=== PATIENT | male | born 1940 | race Caucasian/White ===

== ENCOUNTER 2017-04-19 01:54 | Inpatient (IN) | payer MEDICARE ==
[~2017-04-19] VITALS: Ht 188 cm; Wt 87.5 kg
[2017-04-19] VITALS (11 sets, daily range): BP systolic 108–149; BP diastolic 52–72; PULSE 55–74; RESP 13–27; TEMP 96.4–98.2; O2SAT 94–98
[2017-04-19] MEDS ORDERED: ASPI81TA81 (02:44)
[2017-04-19] MEDS ORDERED: CITA20TA4 PO (02:44)
[2017-04-19] MEDS ORDERED: VITA2000 PO (02:44)
[2017-04-19] MEDS ORDERED: BENA20TA PO (02:44)
[2017-04-19] MEDS ORDERED: PRAV40TA2 PO (02:44)
[2017-04-19] MEDS ORDERED: HYDR12.56 PO (02:44)
[2017-04-19] MEDS ORDERED: CLON1TAB PO (02:44)
[2017-04-19] MEDS ORDERED: AMLO5TAB2 PO (02:44)
[2017-04-19] MEDS ORDERED: CYAN100025 SL (02:44)
--- NOTE | 2017-04-19 02:58 | PD ---
HPI Chief Complaint: Neuro Symptoms/ Deficits Time Seen by Provider: 02:05 Travel History International Travel<30 days: No Contact w/Intl Traveler<30days: No Traveled to known affect area: No History of Present Illness HPI This is a 76-year-old male who was transferred from [facility] as a trauma transfer. The patient was cutting trees on a ladder about 4 or 5:00 today when he reportedly fell off. He does not recall falling off a ladder. He does report waking up on the ground and then getting up and walking towards the house. He states he felt funny at that time. He was seen and evaluated at [facility] found to have a small intracranial hemorrhage in his right frontal area. He was also found to have right sided rib fractures and a small pneumothorax. He was transferred here and accepted by Dr. Duran from her trauma service. The patient has a history of hypertension and takes a half of an aspirin a day. He is awake and appropriate and answering questions. [facility] Social History Tobacco Use: Yes Allergies-Medications (Allergen,Severity, Reaction): Coded Allergies: Contrast Media (Verified Allergy, Severe, 04/19/17) Review of Systems Except as stated in HPI: all other systems reviewed are Neg General / Constitutional: No: Fever, Chills HENT: Positive: Headaches, No: Neck Pain (right frontal) Cardiovascular: Positive: Chest Pain or Discomfort (right lower chest wall where he has broken ribs), No: Palpitations Respiratory: No: Cough, Shortness of Breath Gastrointestinal: No: Nausea, Vomiting, Abdominal Pain Genitourinary: No: Frequency Musculoskeletal: Positive: Pain (right lower rib), No: Weakness Neurologic: Positive: Headache (right frontal), No: Weakness, Change in Mentation, Slurred Speech Physical Exam Narrative GENERAL: Well-developed well-nourished male in no acute respiratory distress SKIN: Focused skin assessment warm/dry. HEAD: Atraumatic. Normocephalic. EYES: No scleral icterus. No injection or drainage. ENT: No nasal bleeding or discharge. Mucous membranes pink and moist. NECK: Trachea midline. No JVD. Supple. CARDIOVASCULAR: Regular rate and rhythm. No murmur appreciated. RESPIRATORY: No accessory muscle use. Clear to auscultation. Breath sounds equal bilaterally. Right sided rib tenderness in his right lower rib cage. No crepitance GASTROINTESTINAL: Abdomen soft, non-tender, nondistended. Hepatic and splenic margins not palpable. MUSCULOSKELETAL: No obvious deformities. Multiple bruises and skin tear noted on his right forearm. NEUROLOGICAL: Awake and alert. No obvious cranial nerve deficits. Motor grossly within normal limits. Normal speech. Data Data Last Documented VS Vital Signs Date Time Temp Pulse Resp B/P Pulse Ox O2 Delivery O2 Flow Rate FiO2 04/19/17 02:32 60 18 99 04/19/17 02:16 97.9 140/63 [facility] Medical Decision Making Medical Screen Exam Complete: Yes Emergency Medical Condition: Yes Differential Diagnosis Intracranial hemorrhage versus pneumothorax versus rib fracture Narrative Course 76-year-old male as a trauma transfer from [facility]. The patient has a small into parenchymal hemorrhage in his right frontal lobe. Patient also has a small pneumothorax on the right and rib fractures. He was accepted for transfer by Dr. Duran. I spoke with Dr. Duran and he is requesting we met the patient to the intensive care unit. I discussed case with Dr. Hanson, intensive care physician who is graciously come down and see the patient. They'll be a repeat scan in the morning of his head. He will be able to eat and drink. He is requesting a couple coffee. Diagnosis Primary Impression: right frontal into parenchymal hemorrhage Additional Impressions: small right pneumothorax right sided rib fractures History of hypertension Admitting Information Admitting Physician Requests: Admit Rafael Martin MD Apr 19, 2017 02:57
[2017-04-19] MEDS ORDERED: SENNOSIDES 8.6 MG TAB PO PRN (03:00)
[2017-04-19] MEDS ORDERED: MISCELLANEOUS NURSING INFORMATION XX SCH (03:00)
[2017-04-19] MEDS ORDERED: MAGNESIUM HYDROXIDE SUSP 30 ML CUP PO PRN (03:00)
[2017-04-19] MEDS ORDERED: LACTULOSE SYRUP 20 GM/30 ML CUP PO PRN (03:00)
[2017-04-19] MEDS ORDERED: RESP: ALBUTEROL 2.5 MG/IPRATROPIUM 0.5 MG NEB (PRN) INH (03:00)
[2017-04-19] MEDS ORDERED: ACETAMINOPHEN 325 MG TAB PO PRN (03:00)
[2017-04-19] MEDS ORDERED: SODIUM CHLORIDE 0.9% FLUSH 10 ML FLUSH PRN (03:00)
[2017-04-19] MEDS ORDERED: ZOLPIDEM TARTRATE 5 MG TAB PO PRN (03:00)
[2017-04-19] MEDS ORDERED: CHLORHEXIDINE GLUCONATE 2 % 1 PACK (2 CLOTHS) TOP PRN (03:00)
[2017-04-19] MEDS ORDERED: ONDANSETRON HCL 4 MG/2 ML VIAL IV PRN (03:00)
[2017-04-19] MEDS ORDERED: BISACODYL 10 MG SUPP RECTAL PRN (03:00)
[2017-04-19] MEDS: SODIUM CHLOR 0.9% 1000 ML INJ 1,000 ML IV SCH ×2 (03:21→21:41)
--- NOTE | 2017-04-19 03:32 | PD.CONS ---
[facility] Service Critical Care Medicine Consult Requested By Primary Care Physician Non-Staff History of Present Illness 76-year-old very pleasant gentleman was transferred from [facility] as a trauma transfer. The patient was cutting trees on a ladder about 4 or 5:00 p.m. today when he reportedly fell off. He does not recall falling off a ladder. He does report waking up on the ground and then getting up and walking towards the house. He states he felt funny at that time. He was seen and evaluated at [facility] found to have a small intracranial hemorrhage in his right frontal area. He was also found to have right sided rib fractures and a small pneumothorax. He was transferred here and accepted by Dr. Duran from her trauma service. The patient has a history of hypertension and takes a half of an aspirin for a murmur on his heart. He is awake and appropriate and answering questions. Review of Systems Constitutional: DENIES: Diaphoretic episodes, Fatigue, Fever, Weight gain, Weight loss, Chills, Dizziness, Change in appetite, Night Sweats Endocrine: DENIES: Heat/cold intolerance, Polydipsia, Polyuria, Polyphagia Eyes: DENIES: Blurred vision, Diplopia, Eye inflammation, Eye pain, Vision loss , Photosensitivity, Double Vision Ears, nose, mouth, throat: DENIES: Tinnitus, Hearing loss, Vertigo, Nasal discharge, Oral lesions, Throat pain, Hoarseness, Ear Pain, Running Nose, Epistaxis, Sinus Pain, Toothache, Odynophagia Respiratory: DENIES: Apneas, Cough, Snoring, Wheezing, Hemoptysis, Sputum production, Shortness of breath Cardiovascular: COMPLAINS OF: Chest pain, DENIES: Palpitations, Syncope, Dyspnea on Exertion, PND, Lower Extremity Edema, Orthopnea, Claudication Gastrointestinal: DENIES: Abdominal pain, Black stools, Bloody stools, Constipation, Diarrhea, Nausea, Vomiting, Difficulty Swallowing, Anorexia Genitourinary: DENIES: Sexual dysfunction, Urinary frequency, Urinary incontinence, Urgency, Hematuria, Dysuria, Nocturia, Penile Discharge, Testicular Pain, Testicular Swelling Musculoskeletal: DENIES: Joint pain, Muscle aches, Stiffness, Joint Swelling, Back pain, Neck pain Integumentary: DENIES: Abnormal pigmentation, Nail changes, Pruritus, Rash Hematologic/lymphatic: DENIES: Bruising, Lymphadenopathy Immunologic/allergic: DENIES: Eczema, Urticaria Neurologic: COMPLAINS OF: Abnormal gait, Headache, DENIES: Localized weakness , Paresthesias, Seizures, Speech Problems, Tremor, Poor Balance Psychiatric: DENIES: Anxiety, Confusion, Mood changes, Depression, Hallucinations, Agitation, Suicidal Ideation, Homicidal Ideation, Delusions Past Family Social History Allergies: Coded Allergies: Contrast Media (Verified Allergy, Severe, 04/19/17) Past Medical History Hypertension Dyslipidemia Depression Anxiety 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 Past Surgical History Right foot fracture Reported Medications Reported Meds & Active Scripts Active Reported Clonazepam 1 Mg Tab 1 Mg PO BID Pravastatin 40 Mg Tab 40 Mg PO DAILY Hydrochlorothiazide 12.5 Mg Tab 12.5 Mg PO DAILY Citalopram (Citalopram Hydrobromide) 20 Mg Tab 20 Mg PO DAILY Benazepril (Benazepril HCl) 20 Mg Tab 20 Mg PO DAILY Aspir-81 (Aspirin) 81 Mg Tabdr Amlodipine (Amlodipine Besylate) 5 Mg Tab 5 Mg PO DAILY Vitamin D3 (Cholecalciferol) 2,000 Unit Cap 2,000 Units PO DAILY B-12 (Cyanocobalamin) 1,000 Mcg Subl 1,000 Mcg SL DAILY Active Ordered Medications Current Medications Medications (Trade) Dose Ordered Sig/Lili Route PRN Reason Start Time Stop Time Status Last Admin Dose Admin Amlodipine Besylate (Norvasc) 5 mg DAILY PO 04/19/17 09:00 Lisinopril (Prinivil) 20 mg DAILY PO 04/19/17 09:00 Cholecalciferol (Vitamin D3) 2,000 units DAILY PO 04/19/17 09:00 Citalopram Hydrobromide (CeleXA) 20 mg DAILY PO 04/19/17 09:00 Clonazepam (KlonoPIN) 1 mg BID PO 04/19/17 09:00 Pravastatin Sodium (Pravachol) 40 mg DAILY PO 04/19/17 09:00 Cyanocobalamin 1000 mcg 1,000 mcg DAILY PO NS 04/19/17 09:00 Sodium Chloride (NS 1000 ml Inj) 1,000 ml @ 84 mls/hr [id number] IV 04/19/17 02:56 04/19/17 03:21 Sodium Chloride (NS Flush) 2 ml UNSCH PRN .XX FLUSH AFTER USING IV ACCESS 04/19/17 03:00 Sodium Chloride (NS Flush) 2 ml BID .XX 04/19/17 09:00 Acetaminophen (Tylenol) 650 mg Q6H PRN PO PAIN 1-10 AND/OR FEVER >101F 04/19/17 03:00 Morphine Sulfate (Morphine Inj) 2 mg Q2H PRN IV PAIN SCALE 6 TO 10 04/19/17 03:00 Famotidine (Pepcid) 20 mg Q12HR PO 04/19/17 09:00 Ondansetron HCl (Zofran Inj) 4 mg Q6H PRN IV NAUSEA OR VOMITING 04/19/17 03:00 Zolpidem Tartrate (Ambien) 5 mg HS PRN PO INSOMNIA 04/19/17 03:00 Miscellaneous Information 1 Q361D XX 04/19/17 03:00 Chlorhexidine Gluconate (Chlorhexidine 2% Cloth) 3 pack Taper DAILY@04 TOP 04/19/17 04:00 04/15/18 03:59 Chlorhexidine Gluconate (Chlorhexidine 2% Cloth) 3 pack UNSCH PRN TOP HYGIENIC CARE 04/19/17 03:00 Senna/Docusate Sodium (Suri-Colace) 1 tab BID PO 04/19/17 09:00 Magnesium Hydroxide (Milk Of Magnesia Liq) 30 ml Q12H PRN PO MILD - MODERATE CONSTIPATION 04/19/17 03:00 Sennosides (Senokot) 17.2 mg Q12H PRN PO MODERATE - SEVERE CONSTIPATION 04/19/17 03:00 Bisacodyl (Dulcolax Supp) 10 mg DAILY PRN RECTAL SEVERE CONSITIPATION 04/19/17 03:00 Lactulose (Lactulose Liq) 30 ml DAILY PRN PO SEVERE CONSITIPATION 04/19/17 03:00 Family History No family history of early coronary or malignancy Social History He denies tobacco alcohol or illicit drug abuse Physical Exam Vital Signs Vital Signs Date Time Temp Pulse Resp B/P Pulse Ox O2 Delivery O2 Flow Rate FiO2 04/19/17 02:32 60 18 99 04/19/17 02:16 97.9 71 18 140/63 98 Physical Exam GENERAL: Well-nourished, well-developed patient. SKIN: Warm and dry. HEAD: Normocephalic. EYES: No scleral icterus. No injection or drainage. NECK: Supple, trachea midline. No JVD or lymphadenopathy. CARDIOVASCULAR: Regular rate and rhythm without murmurs, gallops, or rubs. RESPIRATORY: Breath sounds equal bilaterally. No accessory muscle use. GASTROINTESTINAL: Abdomen soft, non-tender, nondistended. MUSCULOSKELETAL: No cyanosis, or edema. BACK: Nontender without obvious deformity. NEURO EXAM: GCS: M6 V5 E4 Mental Status: The patient is alert and oriented to person, place, and time with normal speech. Cranial Nerves: Visual acuity intact bilaterally. Visual cook normal in all quadrants. Pupils are round, reactive to light. Extraocular movements are intact without ptosis. Hearing is normal bilaterally. Voice is normal. Tongue protrudes midline and moves symmetrically. Reflexes: Biceps, patellar, and Achilles are 2/4 bilaterally. No clonus. Sensation: Sensation is intact bilaterally to pain and light touch. Two-point discrimination is intact. Motor: Good muscle tone. Strength is 5/5 bilaterally. Cerebellar: [id number] and [id number] test normal bilaterally. Assessment and Plan Assessment and Plan Traumatic brain intraparenchymal bleed - Hold aspirin - Keppra prophylaxis - Repeat CT in 24 hours - PT and OT eval and treat - Neurosurgery consult Hypertension - Norvasc - Hold diuretics - Lisinopril Anxiety and depression - Clonazepam - Citalopram Pneumothorax - O2 nasal cannula - Repeat CXR a.m. Rib fractures - Pain control - Supportive care DVT GI prophylaxis - Teds SCDs - Early aggressive mobilization - No pharmacological DVT prophylaxis due to ICH - Pepcid Critical Care: The total critical care time was 35 minutes. Time to perform other separately billable procedures was not included in the critical care time. Remigio Hanson MD Apr 19, 2017 03:32
--- NOTE | 2017-04-19 03:56 | RADRPT ---
EXAM DATE/TIME: 04/19/2017 02:59 [facility] COMPARISON: No previous studies available for comparison. INDICATIONS : Pt fell from ladder, right side chest pain. MEDICAL HISTORY : Hypertension. Hypercholesterolemia. SURGICAL HISTORY : None. ENCOUNTER: Initial ACUITY: 1 day PAIN SCORE: 7/10 LOCATION: Bilateral chest FINDINGS: The cardiac silhouette is normal in transverse diameter. The lungs are free of acute parenchymal opac ity. No effusions are identified. There are fractures of the right sixth and seventh ribs. There is n o evidence of pneumothorax. CONCLUSION: 1. Fractures right sixth and seventh ribs without pneumothorax Gentry Conn MD on April 19, 2017 at 3:53 Board Certified Radiologist. This report was verified electronically.
[2017-04-19 08:05] LABS: AUTOMATED NEUTROPHIL # 6.5 TH/MM3 (1.8-7.7); BASOPHIL # 0.1 TH/MM3 (0-0.2); BASOPHIL % 0.8 % (0.0-2.0); EOSINOPHIL # 0.1 TH/MM3 (0-0.4); EOSINOPHIL % 0.8 % (0.0-4.0); HEMATOCRIT 38.4 % (39.0-51.0); HEMO FLAGS DIFF FINAL; LYMPH % 12.9 % (9.0-44.0); LYMPHOCYTE # 1.2 TH/MM3 (1.0-4.8); MEAN CELL VOLUME 89.6 FL (80.0-100.0); MEAN CORPUSCULAR HEMOGLOBIN 29.2 PG (27.0-34.0); MEAN CORPUSCULAR HGB CONC 32.6 % (32.0-36.0); MONO % 12.8 % (0.0-8.0); NEUT % 72.7 % (16.0-70.0); PLATELET COUNT 255 TH/MM3 (150-450); RED BLOOD COUNT 4.29 MIL/MM3 (4.50-5.90); RED CELL DISTRIBUTION WIDTH 14.4 % (11.6-17.2)
[2017-04-19] MEDS: CHOLECALCIFEROL (VIT D3) 1000 UNIT TAB PO SCH (08:06)
[2017-04-19] MEDS: FAMOTIDINE 20 MG TAB PO SCH ×2 (08:06→21:42)
[2017-04-19] MEDS: amLODIPine BESYLATE 5 MG TAB PO SCH (08:06)
[2017-04-19] MEDS: DOCUSATE SODIUM 50 MG/SENNA 8.6 MG TAB PO SCH ×2 (08:06→21:42)
[2017-04-19] MEDS: clonazePAM 1 MG TAB PO SCH ×2 (08:06→21:42)
[2017-04-19] MEDS: CITALOPRAM HYDROBROMIDE 20 MG TAB PO SCH (08:06)
[2017-04-19] MEDS: PRAVASTATIN SOD 40 MG TAB PO SCH (08:11)
[2017-04-19] MEDS: LISINOPRIL 20 MG TAB PO SCH (08:11)
[2017-04-19] MEDS: levETIRAcetam INJ 500 MG in SODIUM CHLORIDE 0.9% INJ 100 ML IV SCH ×2 (08:11→21:44)
[2017-04-19 08:32] LABS: ANION GAP 6 MEQ/L (5-15); AST (GOT) 35 U/L (15-37); BLOOD UREA NITROGEN 25 MG/DL (7-18); CHLORIDE 105 MEQ/L (98-107); GLOMERULAR FILTRATION RATE 80 ML/MIN (>89); MAGNESIUM 2.2 MG/DL (1.5-2.5); POTASSIUM 4.2 MEQ/L (3.5-5.1); SODIUM (NA) 139 MEQ/L (136-145)
[2017-04-19 08:33] LABS: ALT (GPT) 31 U/L (12-78)
[2017-04-19 08:35] LABS: ALKALINE PHOSPHATASE 53 U/L (45-117); TOTAL BILIRUBIN ADULT 0.4 MG/DL (0.2-1.0)
[2017-04-19] MEDS: LIDOCAINE HCL 5% PATCH T-DERMAL SCH (08:48)
[2017-04-19] MEDS: ACETAMINOPHEN 1000 MG/100 ML VIAL IV SCH ×3 (08:49→21:53)
[2017-04-19] MEDS: METHOCARBAMOL 500 MG TAB PO SCH ×3 (08:49→21:42)
[2017-04-19] MEDS: SODIUM CHLORIDE 0.9% FLUSH 10 ML FLUSH SCH ×2 (09:00→21:42)
[2017-04-19] MEDS: CYANOCOBALAMIN 1,000 MCG TAB PO SCH (09:00)
--- NOTE | 2017-04-19 10:24 | RADRPT ---
EXAM DATE/TIME: 04/19/2017 10:07 [facility] COMPARISON: No previous studies available for comparison. INDICATIONS : Post trumatic brain injury RADIATION DOSE: 56.45 CTDIvol (mGy) MEDICAL HISTORY : Hypertension. Cancer of some type SURGICAL HISTORY : None. ENCOUNTER: Subsequent ACUITY: 3 days PAIN SCALE: 2/10 LOCATION: cranial TECHNIQUE: Multiple contiguous axial images were obtained of the head. Using automated exposure control and adj ustment of the mA and/or kV according to patient size, radiation dose was kept as low as reasonably a chievable to obtain optimal diagnostic quality images. DICOM format image data is available electro nically for review and comparison. FINDINGS: CEREBRUM: Small 1 cm high right cortical contusion is evident. There is no subarachnoid blood. Ventricle size is appropriate. POSTERIOR FOSSA: The cerebellum and brainstem are intact. The 4th ventricle is midline. The cerebellopontine angle i s unremarkable. EXTRACRANIAL: The visualized portion of the orbits is intact. SKULL: The calvaria is intact. No evidence of skull fracture. CONCLUSION: Small punctate cortical contusion right orbitofrontal region otherwise negative. Efrain Clancy MD FACR on April 19, 2017 at 10:21 Board Certified Radiologist. This report was verified electronically.
--- NOTE | 2017-04-19 13:00 | PD.CONS ---
(Brad Larson) [facility] Service Neurosurgery Consult Requested By Dr Hanson Reason for Consult Small frontal intraparenchymal haematoma Primary Care Physician Non-Staff History of Present Illness This is a 76-year-old male who was working approximately 18 to 20 feet off the ground on a ladder trimming trees when he fell the afternoon of . He is amnesic to the event. He states that he remembers being on the ground and getting up and walking back to his house. He does state he felt groggy afterward. He called his daughter and told her what happened and she called EMS who came to his house. He was transported to [facility] for evaluation. Imaging there demonstrated a small intracranial haemorrhage to the right frontal region, right-sided rib fractures and a small pneumothorax. He was therefore transferred to [facility] as a trauma transfer to Dr Duran. The patient currently denies any headache, dizziness or confusion. He still has retrograde amnesia of the event. (Brad Larson) Review of Systems Constitutional: Patient denies any fever, chills, night sweats or weight gain or loss. HEENT: Patient states that he has sinus problems with drainage for years with swelling to the throat as a result. He denies any head pain, visual or hearing deficits, or difficulty or pain with swallowing. Respiratory: Patient denies any shortness of breath, productive cough or wheezing. Cardiovascular: Patient complains of right lower chest wall/rib pain. He denies any palpitations, irregular heartbeat or other chest pain. Gastrointestinal: Patient denies any abdominal pain, nausea, vomiting, diarrhea , constipation or incontinence of stool. Genitourinary: Patient denies any urgency, frequency, dysuria or incontinence of urine. Musculoskeletal: Patient has pain to the right arm and right thigh from the fall. He denies any neck or back pain. Integumentary: Patient does state he has abrasions and bruising to the both arms and the right leg from the fall. He denies any rashes, ulcerations or other lesions. Hematologic/lymphatic: Patient denies any easy bruising or bleeding, anemia or swollen glands. Endocrine: Patient denies any excessive thirst, hunger or urination or any intolerance to heat or cold. Neurologic: Patient denies any headache, dizziness, numbness, tingling or confusion. Psychiatric: Patient does state he has depression. He denies any anxiety or suicidal ideation. (Brad Larson) Past Family Social History Allergies: Coded Allergies: Contrast Media (Verified Allergy, Severe, 04/19/17) Sulfa (Verified Allergy, Severe, swollen throat and itching, 04/19/17) Past Medical History Hypertension Dyslipidemia Depression Anxiety Rheumatic fever w/subsequent heart murmur Prostate cancer Polio w/subsequent post polio syndrome Past Surgical History Bilateral foot arthrocentesis Appendectomy Tonsillectomy Active Ordered Medications Current Medications Medications (Trade) Dose Ordered Sig/Lili Route Start Time Stop Time Status Last Admin (Norvasc) 5 mg DAILY PO 04/19/17 09:00 04/19/17 08:06 (Prinivil) 20 mg DAILY PO 04/19/17 09:00 04/19/17 08:11 (Vitamin D3) 2,000 units DAILY PO 04/19/17 09:00 04/19/17 08:06 (CeleXA) 20 mg DAILY PO 04/19/17 09:00 04/19/17 08:06 (KlonoPIN) 1 mg BID PO 04/19/17 09:00 04/19/17 08:06 (Pravachol) 40 mg DAILY PO 04/19/17 09:00 04/19/17 08:11 Cyanocobalamin 1000 mcg 1,000 mcg DAILY PO 04/19/17 09:00 (NS 1000 ml Inj) 1,000 ml @ 84 mls/hr [id number] IV 04/19/17 02:56 04/19/17 03:21 (NS Flush) 2 ml UNSCH PRN .XX 04/19/17 03:00 (NS Flush) 2 ml BID .XX 04/19/17 09:00 (Tylenol) 650 mg Q6H PRN PO 04/19/17 03:00 (Morphine Inj) 2 mg Q2H PRN IV 04/19/17 03:00 04/19/17 16:43 (Pepcid) 20 mg Q12HR PO 04/19/17 09:00 04/19/17 08:06 (Zofran Inj) 4 mg Q6H PRN IV 04/19/17 03:00 (Ambien) 5 mg HS PRN PO 04/19/17 03:00 Miscellaneous Information 1 Q361D XX 04/19/17 03:00 (Chlorhexidine 2% Cloth) 3 pack Taper DAILY@04 TOP 04/19/17 04:00 04/15/18 03:59 (Chlorhexidine 2% Cloth) 3 pack UNSCH PRN TOP 04/19/17 03:00 (Suri-Colace) 1 tab BID PO 04/19/17 09:00 04/19/17 08:06 (Milk Of Magnesia Liq) 30 ml Q12H PRN PO 04/19/17 03:00 (Senokot) 17.2 mg Q12H PRN PO 04/19/17 03:00 (Dulcolax Supp) 10 mg DAILY PRN RECTAL 04/19/17 03:00 Lactulose 30 ml 30 ml DAILY PRN PO 04/19/17 03:00 (Keppra Inj/NS Inj) 105 ml @ 420 mls/hr Q12HR IV 04/19/17 09:00 04/19/17 08:11 (Baciguent Oint) 1 applic BID TOP 04/19/17 09:00 (Robaxin) 500 mg Q8HR PO 04/19/17 08:00 04/19/17 13:40 (Lidoderm 5% Patch.12 Hr) 1 patch DAILY T-DERMAL 04/19/17 09:00 04/19/17 08:48 (Ofirmev Inj) 1,000 mg Q6H IV 04/19/17 09:00 04/20/17 08:59 04/19/17 16:44 Family History Father with heart problems. No family history of stroke or cancer. 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 Lives alone, . One grown daughter, son . Denies any tobacco, alcohol or illicit drugs. (Brad Larson) Physical Exam Vital Signs Vital Signs Date Time Temp Pulse Resp B/P Pulse Ox O2 Delivery O2 Flow Rate FiO2 04/19/17 12:00 62 04/19/17 12:00 97.6 62 13 108/52 97 04/19/17 10:00 68 04/19/17 08:00 97.1 68 27 132/70 97 04/19/17 08:00 68 04/19/17 07:00 68 04/19/17 06:48 96 04/19/17 06:00 69 04/19/17 04:00 98.2 74 26 149/72 94 04/19/17 02:32 60 18 99 04/19/17 02:16 97.9 71 18 140/63 98 Physical Exam GENERAL: This is a well developed 76-year-old male who appears younger than his age. He is in no apparent distress. PSYCHIATRIC: Readily interacts, normal affect. HEENT: Normocephalic, atraumatic. PERRLA, EOMI. TMs pearly russell, no otorrhea. Nares moist & pink, w/o rhinorrhea. MMM & pink, no lesions noted. NECK: Midline cervical spine NTTP, neck supple, no JVD, trachea midline. RESPIRATORY: CTAB w/o W/R/R, equal excursion, nonlaboured, on RA. CARDIOVASCULAR: Mid right anterolateral chest wall TTP. S1S2 w/RRR w/o M/G/R, radial & pedal pulses 2+ bilaterally, cap refill < 2 sec, no pedal edema. Monitor is sinus rhythm w/o any ectopy noted. GASTROINTESTINAL: Abdomen soft, nontender, no palpable masses or organomegaly, positive bowel sounds. GENITOURINARY: Normal male genitalia. INTEGUMENTARY: Warm & dry. Multiple abrasions and ecchymosis to the upper extremities and right thigh. MUSCULOSKELETAL: RODRIGUES w/o difficulty, no evident deformity or clubbing, RUE, left forearm & right thigh moderately TTP. HAEMATOLOGICAL/LYMPHATIC: Ecchymosis secondary to injury, no swollen glands. NEUROLOGICAL: AAOx3. Speech clear & appropriate. Retrograde amnesia to the event. Follows commands w/o difficulty. CN II-XII grossly intact. Sensation to light touch intact to extremities. Motor strength 5/5 to all major flexion & extension muscle groups except hand intrinsics & extrinsics 4 to 4+/5. No Howell's bilaterally. No ankle clonus bilaterally. Neutral plantar response bilaterally. Laboratory Laboratory Tests Test 04/19/17 04/19/17 04:15 07:36 Nasal Screen MRSA (PCR) MRSA NOT DETECTED White Blood Count 9.0 Red Blood Count 4.29 Hemoglobin 12.5 Hematocrit 38.4 Mean Corpuscular Volume 89.6 Mean Corpuscular Hemoglobin 29.2 Mean Corpuscular Hemoglobin 32.6 Concent Red Cell Distribution Width 14.4 Platelet Count 255 Mean Platelet Volume 7.5 Neutrophils (%) (Auto) 72.7 Lymphocytes (%) (Auto) 12.9 Monocytes (%) (Auto) 12.8 Eosinophils (%) (Auto) 0.8 Basophils (%) (Auto) 0.8 Neutrophils # (Auto) 6.5 Lymphocytes # (Auto) 1.2 Monocytes # (Auto) 1.2 Eosinophils # (Auto) 0.1 Basophils # (Auto) 0.1 CBC Comment DIFF FINAL Differential Comment Sodium Level 139 Potassium Level 4.2 Chloride Level 105 Carbon Dioxide Level 28.0 Anion Gap 6 Blood Urea Nitrogen 25 Creatinine 0.92 Estimat Glomerular Filtration 80 Rate Random Glucose 86 Calcium Level 8.3 Phosphorus Level 2.8 Magnesium Level 2.2 Total Bilirubin 0.4 Aspartate Amino Transf 35 (AST/SGOT) Alanine Aminotransferase 31 (ALT/SGPT) Alkaline Phosphatase 53 Total Protein 6.1 Albumin 3.4 (Brad Larson) Result Diagram: 04/19/17 0736 04/19/17 0736 Imaging Recent Impressions Chest X-Ray 04/19/17 0600 Signed Impressions: Service Date/Time: Wednesday, April 19, 2017 02:59 - CONCLUSION: 1. Fractures right sixth and seventh ribs without pneumothorax Gentry Conn MD Head CT 04/19/17 0000 Signed Impressions: Service Date/Time: Wednesday, April 19, 2017 10:07 - CONCLUSION: Small punctate cortical contusion right orbitofrontal region otherwise negative. Efrain Clancy MD FACR (Brad Larson) Assessment and Plan Assessment and Plan Impression: 1. Fall from ladder ~18 to 20 ft 2. Small right orbitofrontal region punctate cortical contusion 3. Right 6th & 7th rib fractures 4. Small right-sided pneumothorax 5. Multiple extremity contusions & abrasions Patient doing well and is neurologically intact with retrograde amnesia to event. Plan: Primary management per Trauma. Neuro checks. Stat CT brain for any worsening of neuro status. Mobilise patient. Okay for the patient to transfer to a regular med/surg floor from [facility]'s perspective. The patient is able to be discharged from NSGY's perspective once cleared by Trauma. (Brad Larson) Attending Statement I have personally seen and examined the patient on 04/19/17. Pertinent documentation and study results have been reviewed by the undersigned. I have personally developed the treatment plan and performed medical decision making. Agree with findings, exam, and treatment plan as noted above. On my examination today, the patient is awake and alert. Cranial nerves II through XII tested and intact. Sensation intact light touch all extremities Strength is within normal limits major flexion and extension groups all extremities Steve's response absent bilateral No evidence of CSF otorrhea or rhinorrhea. Follow-up CT scan had 04/19/17 images reviewed by the undersigned. This study reveals a small approximately 1 cm contusion right frontal orbital region without significant mass effect. No hydrocephalus or pneumocephalus. No skull fracture noted. Findings were discussed with the patient. He may be discharged home over the weekend from a neurosurgical standpoint Advised to avoid aspirin, NSAIDs, fish oil, vitamin E, antiplatelet agents for the next 2 weeks. He can follow up outpatient with neurosurgery Signs and symptoms to watch were fully discussed. (Willy Wolff MD) Brad Larson Apr 19, 2017 13:00 Willy Wolff MD Apr 19, 2017 23:33
--- NOTE | 2017-04-19 13:44 | HHI.HP ---
History of Present Illness Primary Care Physician Non-Staff Admission Diagnosis intracranial hemorrhage, small right pneumothorax, right sided rib f Diagnoses: History of Present Illness This is a 76-year-old male who was transferred from [facility] as a trauma transfer. The patient was cutting trees on a ladder about 4 or 5:00pm yesterday when he reportedly fell off.. He was seen and evaluated at [facility] found to have a small intracranial hemorrhage in his right frontal area. He was also found to have right sided rib fractures and a small pneumothorax. He was transferred here and admitted to the ICU. The patient has a history of hypertension and takes a half of an aspirin a day. He is awake and appropriate and answering questions,HD normal,GCS 15,c/o right thoracic pain. Review of Systems Constitutional: DENIES: Diaphoretic episodes, Fatigue, Fever, Weight gain, Weight loss, Chills, Dizziness, Change in appetite, Night Sweats Endocrine: DENIES: Heat/cold intolerance, Polydipsia, Polyuria, Polyphagia Eyes: DENIES: Blurred vision, Diplopia, Eye inflammation, Eye pain, Vision loss , Photosensitivity, Double Vision Respiratory: DENIES: Apneas, Cough, Snoring, Wheezing, Hemoptysis, Sputum production, Shortness of breath Cardiovascular: DENIES: Chest pain, Palpitations, Syncope, Dyspnea on Exertion , PND, Lower Extremity Edema, Orthopnea, Claudication Gastrointestinal: DENIES: Abdominal pain, Black stools, Bloody stools, Constipation, Diarrhea, Nausea, Vomiting, Difficulty Swallowing, Anorexia Genitourinary: DENIES: Sexual dysfunction, Urinary frequency, Urinary incontinence, Urgency, Hematuria, Dysuria, Nocturia, Penile Discharge, Testicular Pain, Testicular Swelling Musculoskeletal: DENIES: Joint pain, Muscle aches, Stiffness, Joint Swelling, Back pain, Neck pain Integumentary: DENIES: Abnormal pigmentation, Nail changes, Pruritus, Rash Hematologic/lymphatic: DENIES: Bruising, Lymphadenopathy Immunologic/allergic: DENIES: Eczema, Urticaria Psychiatric: DENIES: Anxiety, Confusion, Mood changes, Depression, Hallucinations, Agitation, Suicidal Ideation, Homicidal Ideation, Delusions Past Family Social History Allergies: Coded Allergies: Contrast Media (Verified Allergy, Severe, 04/19/17) Sulfa (Verified Allergy, Severe, swollen throat and itching, 04/19/17) Past Medical History htn Reported Medications ASA Family History none Physical Exam Vital Signs Vital Signs Date Time Temp Pulse Resp B/P Pulse Ox O2 Delivery O2 Flow Rate FiO2 04/19/17 12:00 62 04/19/17 12:00 97.6 62 13 108/52 97 04/19/17 10:00 68 04/19/17 08:00 97.1 68 27 132/70 97 04/19/17 08:00 68 04/19/17 07:00 68 04/19/17 06:48 96 04/19/17 06:00 69 04/19/17 04:00 98.2 74 26 149/72 94 04/19/17 02:32 60 18 99 04/19/17 02:16 97.9 71 18 140/63 98 Physical Exam GENERAL: This is a well-nourished, well-developed patient, in no apparent distress. SKIN: No rashes, ecchymoses or lesions. Cool and dry. HEAD: Atraumatic. Normocephalic. No temporal or scalp tenderness. EYES: Pupils equal round and reactive. Extraocular motions intact. ENT: Nose without bleeding, purulent drainage or septal hematoma. Airway patent. NECK: Trachea midline. No JVD or lymphadenopathy. Supple, nontender, no meningeal signs. CARDIOVASCULAR: Regular rate and rhythm without murmurs, gallops, or rubs. RESPIRATORY: Clear to auscultation. Breath sounds equal bilaterally. No wheezes , rales, or rhonchi. right thoracic tenderness GASTROINTESTINAL: Abdomen soft, non-tender, nondistended. No guarding. MUSCULOSKELETAL: Extremities without clubbing, cyanosis, or edema. No joint tenderness, effusion. NEUROLOGICAL: Awake and alert. Cranial nerves II through XII intact. Motor and sensory grossly within normal limits. Five out of 5 muscle strength in all muscle groups. Normal speech. Laboratory Laboratory Tests Test 04/19/17 04/19/17 04:15 07:36 Nasal Screen MRSA (PCR) MRSA NOT DETECTED White Blood Count 9.0 Red Blood Count 4.29 Hemoglobin 12.5 Hematocrit 38.4 Mean Corpuscular Volume 89.6 Mean Corpuscular Hemoglobin 29.2 Mean Corpuscular Hemoglobin 32.6 Concent Red Cell Distribution Width 14.4 Platelet Count 255 Mean Platelet Volume 7.5 Neutrophils (%) (Auto) 72.7 Lymphocytes (%) (Auto) 12.9 Monocytes (%) (Auto) 12.8 Eosinophils (%) (Auto) 0.8 Basophils (%) (Auto) 0.8 Neutrophils # (Auto) 6.5 Lymphocytes # (Auto) 1.2 Monocytes # (Auto) 1.2 Eosinophils # (Auto) 0.1 Basophils # (Auto) 0.1 CBC Comment DIFF FINAL Differential Comment Sodium Level 139 Potassium Level 4.2 Chloride Level 105 Carbon Dioxide Level 28.0 Anion Gap 6 Blood Urea Nitrogen 25 Creatinine 0.92 Estimat Glomerular Filtration 80 Rate Random Glucose 86 Calcium Level 8.3 Phosphorus Level 2.8 Magnesium Level 2.2 Total Bilirubin 0.4 Aspartate Amino Transf 35 (AST/SGOT) Alanine Aminotransferase 31 (ALT/SGPT) Alkaline Phosphatase 53 Total Protein 6.1 Albumin 3.4 Result Diagram: 04/19/17 0736 04/19/17 0736 Imaging Last 48 hours Impressions Chest X-Ray 04/19/17 0600 Signed Impressions: Service Date/Time: Wednesday, April 19, 2017 02:59 - CONCLUSION: 1. Fractures right sixth and seventh ribs without pneumothorax Gentry Conn MD Head CT 04/19/17 0000 Signed Impressions: Service Date/Time: Wednesday, April 19, 2017 10:07 - CONCLUSION: Small punctate cortical contusion right orbitofrontal region otherwise negative. Efrain Clancy MD FACR Assessment and Plan Assessment and Plan Right rib fx 6,7 Right frontal contusion small GCS [address] head Transfer floor after observation in the ICU Pain control IS Kathie Miller MD Apr 19, 2017 13:44
[2017-04-19] MEDS: MORPHINE SULFATE 4 MG/ML INJ IV PRN (16:43)
[2017-04-19] MEDS: BACITRACIN TOP OINT 15 GM TUBE TOP SCH (21:00)
[2017-04-20] VITALS (8 sets, daily range): BP systolic 104–124; BP diastolic 59–77; PULSE 57–72; RESP 17–18; TEMP 96–98.3; O2SAT 93–97
[2017-04-20] MEDS: CHLORHEXIDINE GLUCONATE 2 % 1 PACK (2 CLOTHS) TOP SCH ×2 (02:59→21:18)
[2017-04-20] MEDS: ACETAMINOPHEN 1000 MG/100 ML VIAL IV SCH (03:00)
[2017-04-20 03:46] LABS: EOSINOPHIL # 0.2 TH/MM3 (0-0.4); EOSINOPHIL % 3.6 % (0.0-4.0); HEMATOCRIT 34.9 % (39.0-51.0); HEMO FLAGS DIFF FINAL; LYMPH % 19.4 % (9.0-44.0); LYMPHOCYTE # 0.9 TH/MM3 (1.0-4.8); MEAN CELL VOLUME 89.4 FL (80.0-100.0); MEAN CORPUSCULAR HGB CONC 33.5 % (32.0-36.0); MONO % 13.3 % (0.0-8.0); NEUT % 62.7 % (16.0-70.0); PLATELET COUNT 229 TH/MM3 (150-450); RED BLOOD COUNT 3.91 MIL/MM3 (4.50-5.90); RED CELL DISTRIBUTION WIDTH 14.5 % (11.6-17.2); WHITE BLOOD COUNT 4.8 TH/MM3 (4.0-11.0)
[2017-04-20 04:10] LABS: ALKALINE PHOSPHATASE 47 U/L (45-117); ALT (GPT) 25 U/L (12-78); ANION GAP 3 MEQ/L (5-15); AST (GOT) 26 U/L (15-37); BICARBONATE 29.6 MEQ/L (21.0-32.0); BLOOD UREA NITROGEN 22 MG/DL (7-18); CHLORIDE 109 MEQ/L (98-107); GLOMERULAR FILTRATION RATE 81 ML/MIN (>89); MAGNESIUM 2.2 MG/DL (1.5-2.5); SODIUM (NA) 142 MEQ/L (136-145); TOTAL BILIRUBIN ADULT 0.2 MG/DL (0.2-1.0)
[2017-04-20] MEDS: METHOCARBAMOL 500 MG TAB PO SCH ×3 (05:07→21:04)
[2017-04-20] MEDS: MORPHINE SULFATE 4 MG/ML INJ IV PRN ×2 (05:08→11:40)
--- NOTE | 2017-04-20 05:50 | RADRPT ---
EXAM DATE/TIME: 04/20/2017 04:43 [place] COMPARISON: CHEST SINGLE AP, April 19, 2017, 2:59. INDICATIONS : Evaluate for pnuemothorax, Right side chest pain MEDICAL HISTORY : Hypertension. Hypercholesterolemia. SURGICAL HISTORY : None. ENCOUNTER: Subsequent ACUITY: 2 days PAIN SCORE: 7/10 LOCATION: Bilateral chest FINDINGS: The cardiac silhouette is normal in transverse diameter. There is elevation of the right hemidiaphrag m. There is subsegmental atelectasis in the both bases. CONCLUSION: 1. Bibasilar atelectasis. This is new when compared with the prior exam. Gentry Conn MD on April 20, 2017 at 5:48 Board Certified Radiologist. This report was verified electronically.
[2017-04-20] MEDS: FAMOTIDINE 20 MG TAB PO SCH (09:46)
[2017-04-20] MEDS: PRAVASTATIN SOD 40 MG TAB PO SCH (09:46)
[2017-04-20] MEDS: CYANOCOBALAMIN 1,000 MCG TAB PO SCH ×2 (09:47→09:57)
[2017-04-20] MEDS: CHOLECALCIFEROL (VIT D3) 1000 UNIT TAB PO SCH (09:54)
[2017-04-20] MEDS: amLODIPine BESYLATE 5 MG TAB PO SCH (09:54)
[2017-04-20] MEDS: DOCUSATE SODIUM 50 MG/SENNA 8.6 MG TAB PO SCH ×2 (09:54→21:04)
[2017-04-20] MEDS: clonazePAM 1 MG TAB PO SCH ×2 (09:54→21:04)
[2017-04-20] MEDS: CITALOPRAM HYDROBROMIDE 20 MG TAB PO SCH (09:54)
[2017-04-20] MEDS: LISINOPRIL 20 MG TAB PO SCH (09:54)
[2017-04-20] MEDS: BACITRACIN TOP OINT 15 GM TUBE TOP SCH ×2 (09:55→21:05)
[2017-04-20] MEDS: SODIUM CHLORIDE 0.9% FLUSH 10 ML FLUSH SCH ×2 (09:57→21:04)
--- NOTE | 2017-04-20 10:54 | HHI.NSPN ---
(Lakshmi Mcleod) Note Status Status: Progress Note (Lakshmi Mcleod) Interval History Interval History This is a 76-year-old male who was working approximately 18 to 20 feet off the ground on a ladder trimming trees when he fell the afternoon of . He is amnesic to the event. He states that he remembers being on the ground and getting up and walking back to his house. He does state he felt groggy afterward. He called his daughter and told her what happened and she called EMS who came to his house. He was transported to [facility] for evaluation. Imaging there demonstrated a small intracranial haemorrhage to the right frontal region, right-sided rib fractures and a small pneumothorax. He was therefore transferred to [facility] as a trauma transfer to Dr Duran. The patient currently denies any headache, dizziness or confusion. He still has retrograde amnesia of the event. 04/20: head feeling better, stable right rib pain controlled on Morphine (Lakshmi Mcleod) Labs, Micro, & Vital Signs Results Date Time Temp Pulse Resp B/P Pulse Ox O2 Delivery O2 Flow Rate FiO2 04/20/17 08:00 96.4 66 18 108/62 96 04/20/17 04:46 57 04/20/17 04:00 97.5 58 17 117/64 97 04/20/17 00:00 96.0 60 17 104/61 97 04/19/17 20:00 96.4 64 17 111/62 97 04/19/17 16:00 96.4 63 18 110/59 96 04/19/17 14:00 55 04/19/17 12:00 62 04/19/17 12:00 97.6 62 13 108/52 97 04/20/17 07:00 Intake Total 2903 ml Output Total 1376 ml Balance 1527 ml Constitutional Vital Signs Date Time Temp Pulse Resp B/P Pulse Ox O2 Delivery O2 Flow Rate FiO2 04/20/17 08:00 96.4 66 18 108/62 96 04/20/17 04:46 57 04/20/17 04:00 97.5 58 17 117/64 97 04/20/17 00:00 96.0 60 17 104/61 97 04/19/17 20:00 96.4 64 17 111/62 97 04/19/17 16:00 96.4 63 18 110/59 96 04/19/17 14:00 55 04/19/17 12:00 62 04/19/17 12:00 97.6 62 13 108/52 97 04/20/17 07:00 Intake Total 2903 ml Output Total 1376 ml Balance 1527 ml (Lakshmi Mcleod) Review of Systems/Exam Exam Awake, alert, and oriented x 3 Speech is fluent. Follows commands well. CN: pupils equal, facial motor symmetric Motor: 5/5 to all major flexion & extension groups (Lakshmi Mcleod) Medications Current Medications Current Medications Medications (Trade) Dose Ordered Sig/Lili Route PRN Reason Start Time Stop Time Status Last Admin Dose Admin Amlodipine Besylate (Norvasc) 5 mg DAILY PO 04/19/17 09:00 04/20/17 09:54 Lisinopril (Prinivil) 20 mg DAILY PO 04/19/17 09:00 04/20/17 09:54 Cholecalciferol (Vitamin D3) 2,000 units DAILY PO 04/19/17 09:00 04/20/17 09:54 Citalopram Hydrobromide (CeleXA) 20 mg DAILY PO 04/19/17 09:00 04/20/17 09:54 Clonazepam (KlonoPIN) 1 mg BID PO 04/19/17 09:00 04/20/17 09:54 Pravastatin Sodium (Pravachol) 40 mg DAILY PO 04/19/17 09:00 04/20/17 09:46 Cyanocobalamin (Vitamin B12) 1,000 mcg DAILY PO NS 04/19/17 09:00 04/20/17 09:57 Sodium Chloride (NS Flush) 2 ml UNSCH PRN .XX FLUSH AFTER USING IV ACCESS 04/19/17 03:00 Sodium Chloride (NS Flush) 2 ml BID .XX 04/19/17 09:00 04/20/17 09:57 Acetaminophen (Tylenol) 650 mg Q6H PRN PO OR FEVER >101F 04/19/17 03:00 Morphine Sulfate (Morphine Inj) 2 mg Q2H PRN IV PAIN SCALE 6 TO 10 04/19/17 03:00 04/20/17 11:40 Ondansetron HCl (Zofran Inj) 4 mg Q6H PRN IV NAUSEA OR VOMITING 04/19/17 03:00 Miscellaneous Information 1 Q361D XX 04/19/17 03:00 Chlorhexidine Gluconate (Chlorhexidine 2% Cloth) 3 pack Taper DAILY@04 TOP 04/19/17 04:00 04/15/18 03:59 Chlorhexidine Gluconate (Chlorhexidine 2% Cloth) 3 pack UNSCH PRN TOP HYGIENIC CARE 04/19/17 03:00 Senna/Docusate Sodium (Suri-Colace) 1 tab BID PO 04/19/17 09:00 04/20/17 09:54 Magnesium Hydroxide (Milk Of Magnesia Liq) 30 ml Q12H PRN PO MILD - MODERATE CONSTIPATION 04/19/17 03:00 Sennosides (Senokot) 17.2 mg Q12H PRN PO MODERATE - SEVERE CONSTIPATION 04/19/17 03:00 Bisacodyl (Dulcolax Supp) 10 mg DAILY PRN RECTAL SEVERE CONSITIPATION 04/19/17 03:00 Lactulose (Lactulose Liq) 30 ml DAILY PRN PO SEVERE CONSITIPATION 04/19/17 03:00 Bacitracin (Baciguent Oint) 1 applic BID TOP 04/19/17 09:00 04/20/17 09:55 Methocarbamol (Robaxin) 500 mg Q8HR PO 04/19/17 08:00 04/20/17 05:07 Lidocaine HCl (Lidoderm 5% Patch.12 Hr) 1 patch DAILY T-DERMAL 04/19/17 09:00 04/20/17 11:41 Oxycodone/ Acetaminophen (Percocet 5-325 Mg) 1 tab Q6H PRN PO PAIN SCALE 4 TO 7 04/20/17 11:30 Oxycodone/ Acetaminophen (Percocet 5-325 Mg) 2 tab Q6H PRN PO PAIN SCALE 7 TO 10 04/20/17 11:30 (Lakshmi Mcleod) Medical Decision Making MDM Remarks 76 y/o male s/p fall from ladder CT Head with punctate cortical contusion Right 6th & 7th rib fractures Small right-sided pneumothorax (Lakshmi Mcleod) Plan Plan Remarks neuro stable, cont nonsurgical mgt supportive care cont neuro checks, nonchemical dvt prophylaxis due to ICH clear to dc home from NRS standpoint (Lakshmi Mcleod) Attending Statement The exam, history, and the medical decision-making described in the above note were completed with the assistance of the mid-level provider. I reviewed and agree with the findings presented. I attest that I had a [id number] encounter with the patient on the same day, and personally performed and documented my assessment and findings in the medical record. (Dakota Ervin MD) Lakshmi Mcleod Apr 20, 2017 10:54 Dakota Ervin MD Apr 23, 2017 19:01
--- NOTE | 2017-04-20 11:28 | HHI.PR ---
Subjective Subjective Notes Feeling better Objective Vitals/I&O Vital Signs Date Time Temp Pulse Resp B/P Pulse Ox O2 Delivery O2 Flow Rate FiO2 04/20/17 08:00 96.4 66 18 108/62 96 Labs Laboratory Tests Test 04/20/17 03:20 White Blood Count 4.8 Red Blood Count 3.91 Hemoglobin 11.7 Hematocrit 34.9 Mean Corpuscular Volume 89.4 Mean Corpuscular Hemoglobin 30.0 Mean Corpuscular Hemoglobin 33.5 Concent Red Cell Distribution Width 14.5 Platelet Count 229 Mean Platelet Volume 8.1 Neutrophils (%) (Auto) 62.7 Lymphocytes (%) (Auto) 19.4 Monocytes (%) (Auto) 13.3 Eosinophils (%) (Auto) 3.6 Basophils (%) (Auto) 1.0 Neutrophils # (Auto) 3.0 Lymphocytes # (Auto) 0.9 Monocytes # (Auto) 0.6 Eosinophils # (Auto) 0.2 Basophils # (Auto) 0.0 CBC Comment DIFF FINAL Differential Comment Sodium Level 142 Potassium Level 4.0 Chloride Level 109 Carbon Dioxide Level 29.6 Anion Gap 3 Blood Urea Nitrogen 22 Creatinine 0.91 Estimat Glomerular Filtration 81 Rate Random Glucose 88 Calcium Level 7.7 Phosphorus Level 2.7 Magnesium Level 2.2 Total Bilirubin 0.2 Aspartate Amino Transf 26 (AST/SGOT) Alanine Aminotransferase 25 (ALT/SGPT) Alkaline Phosphatase 47 Total Protein 5.4 Albumin 2.7 Radiology Last Impressions Chest X-Ray 04/20/17 0600 Signed Impressions: Service Date/Time: Thursday, April 20, 2017 04:43 - CONCLUSION: 1. Bibasilar atelectasis. This is new when compared with the prior exam. Gentry Conn MD Head CT 04/19/17 0000 Signed Impressions: Service Date/Time: Wednesday, April 19, 2017 10:07 - CONCLUSION: Small punctate cortical contusion right orbitofrontal region otherwise negative. Efrain Clancy MD FACR Cardiovascular: Regular Lungs: Clear Abdomen: Non-distended, Non-tender Extremities: No edema A/P Assessment and Plan stable overall started to ambulate NS signed off PT dispo planning adjusted pain Kathie Jj MD Apr 20, 2017 11:28
[2017-04-20] MEDS ORDERED: oxyCODONE/ACETAMINOPHEN 5 MG/325 MG TAB PO PRN (11:30)
[2017-04-20] MEDS: LIDOCAINE HCL 5% PATCH T-DERMAL SCH (11:41)
[2017-04-20] MEDS: oxyCODONE/ACETAMINOPHEN 5 MG/325 MG TAB PO PRN (17:35)
[2017-04-21] VITALS (9 sets, daily range): BP systolic 104–141; BP diastolic 56–75; PULSE 64–79; RESP 17–22; TEMP 96.8–100; O2SAT 93–99
[2017-04-21] MEDS: METHOCARBAMOL 500 MG TAB PO SCH ×3 (05:31→20:47)
[2017-04-21] MEDS: MORPHINE SULFATE 4 MG/ML INJ IV PRN (05:33)
[2017-04-21] MEDS: DOCUSATE SODIUM 50 MG/SENNA 8.6 MG TAB PO SCH ×2 (08:42→20:47)
[2017-04-21] MEDS: CITALOPRAM HYDROBROMIDE 20 MG TAB PO SCH (08:42)
[2017-04-21] MEDS: LISINOPRIL 20 MG TAB PO SCH (08:43)
[2017-04-21] MEDS: clonazePAM 1 MG TAB PO SCH ×2 (08:43→20:47)
[2017-04-21] MEDS: amLODIPine BESYLATE 5 MG TAB PO SCH (08:43)
[2017-04-21] MEDS: PRAVASTATIN SOD 40 MG TAB PO SCH (08:43)
[2017-04-21] MEDS: CHOLECALCIFEROL (VIT D3) 1000 UNIT TAB PO SCH (08:43)
[2017-04-21] MEDS: BACITRACIN TOP OINT 15 GM TUBE TOP SCH ×2 (08:45→20:48)
[2017-04-21] MEDS ORDERED: LACTULOSE SYRUP 20 GM/30 ML CUP PO ONE (08:45)
[2017-04-21] MEDS: LIDOCAINE HCL 5% PATCH T-DERMAL SCH (08:45)
[2017-04-21] MEDS ORDERED: WALKER WHEELS/F1 MIS (08:52)
[2017-04-21] MEDS: CYANOCOBALAMIN 1,000 MCG TAB PO SCH (09:00)
--- NOTE | 2017-04-21 10:26 | HHI.PR ---
Subjective Subjective Notes Pain better today Ambulating to bathroom unassisted Objective Vitals/I&O Vital Signs Date Time Temp Pulse Resp B/P Pulse Ox O2 Delivery O2 Flow Rate FiO2 04/21/17 09:34 99 04/21/17 08:00 97.7 64 18 120/65 Labs Laboratory Tests Test 04/19/17 04/20/17 04:15 03:20 Nasal Screen MRSA (PCR) MRSA NOT DETECTED White Blood Count 4.8 TH/MM3 Red Blood Count 3.91 MIL/MM3 Hemoglobin 11.7 GM/DL Hematocrit 34.9 % Mean Corpuscular Volume 89.4 FL Mean Corpuscular Hemoglobin 30.0 PG Mean Corpuscular Hemoglobin 33.5 % Concent Red Cell Distribution Width 14.5 % Platelet Count 229 TH/MM3 Mean Platelet Volume 8.1 FL Neutrophils (%) (Auto) 62.7 % Lymphocytes (%) (Auto) 19.4 % Monocytes (%) (Auto) 13.3 % Eosinophils (%) (Auto) 3.6 % Basophils (%) (Auto) 1.0 % Neutrophils # (Auto) 3.0 TH/MM3 Lymphocytes # (Auto) 0.9 TH/MM3 Monocytes # (Auto) 0.6 TH/MM3 Eosinophils # (Auto) 0.2 TH/MM3 Basophils # (Auto) 0.0 TH/MM3 CBC Comment DIFF FINAL Differential Comment Sodium Level 142 MEQ/L Potassium Level 4.0 MEQ/L Chloride Level 109 MEQ/L Carbon Dioxide Level 29.6 MEQ/L Anion Gap 3 MEQ/L Blood Urea Nitrogen 22 MG/DL Creatinine 0.91 MG/DL Estimat Glomerular Filtration 81 ML/MIN Rate Random Glucose 88 MG/DL Calcium Level 7.7 MG/DL Phosphorus Level 2.7 MG/DL Magnesium Level 2.2 MG/DL Total Bilirubin 0.2 MG/DL Aspartate Amino Transf 26 U/L (AST/SGOT) Alanine Aminotransferase 25 U/L (ALT/SGPT) Alkaline Phosphatase 47 U/L Total Protein 5.4 GM/DL Albumin 2.7 GM/DL Radiology Last Impressions Chest X-Ray 04/20/17 0600 Signed Impressions: Service Date/Time: Thursday, April 20, 2017 04:43 - CONCLUSION: 1. Bibasilar atelectasis. This is new when compared with the prior exam. Gentry Conn MD Head CT 04/19/17 0000 Signed Impressions: Service Date/Time: Wednesday, April 19, 2017 10:07 - CONCLUSION: Small punctate cortical contusion right orbitofrontal region otherwise negative. Efrain Clancy MD FACR Narrative Exam GENERAL: 76-year-old well-nourished, well developed male lying in bed. SKIN: Warm and dry. HEAD: Normocephalic. ENT: No nasal bleeding or discharge. Mucous membranes pink and moist. NECK: Trachea midline. No JVD. CARDIOVASCULAR: Regular rate and rhythm. RESPIRATORY: No accessory muscle use. Lungs clear and diminished to auscultation. Breath sounds equal bilaterally. GASTROINTESTINAL: Abdomen soft, non-tender, nondistended. + BS. MUSCULOSKELETAL: Extremities without cyanosis, or edema. No obvious deformities. NEUROLOGICAL: Awake and alert. Normal speech. A/P Assessment and Plan [place]: Trimming trees on a ladder and fell off approx. 20ft. + LOC. Woke up and ambulated around but felt funny. Transferred from [facility] for Trauma services. INJURIES: RIGHT frontal IPH RIGHT rib fxs (6,7) RIGHT PTX PMHx: HTN, HLD Diet: Regular, tolerating Pulm: IS, EZPAP Pain: Robaxin, Lidoderm patch, Percocet Activity: OOB. PT and OT ordered GI: Pepcid Bowel: Suri-colace. No BM yet. Lactulose x1 DVT: SCDs RIGHT frontal IPH Neurosurgery consulted Serial neuro checks Repeat CT brain improved OOBPT IV Keppra for seizure prophylaxis RIGHT rib fxs, RIGHT PTX Supportive care PTX resolved without intervention Pain control Pulmonary toileting OOBPT Plan of care discussed patient at bedside. Case management consult to assist with discharge planning. Plan for patient to discharge tomorrow with home health care. Rolling walker ordered. Patient reports he lives alone. IV Keppra Remarks Seen and examined with the nurse practitioners GCS 15 pain controlled patient ambulating with the walker stable patient plan to discharge with home health next 24 hours Trent Frank Apr 21, 2017 10:25 Kathie Miller MD Apr 21, 2017 17:01
--- NOTE | 2017-04-21 11:47 | HHI.NSPN ---
(Lakshmi Mcleod) Note Status Status: Progress Note (Lakshmi Mcleod) Interval History Interval History This is a 76-year-old male who was working approximately 18 to 20 feet off the ground on a ladder trimming trees when he fell the afternoon of . He is amnesic to the event. He states that he remembers being on the ground and getting up and walking back to his house. He does state he felt groggy afterward. He called his daughter and told her what happened and she called EMS who came to his house. He was transported to [facility] for evaluation. Imaging there demonstrated a small intracranial haemorrhage to the right frontal region, right-sided rib fractures and a small pneumothorax. He was therefore transferred to [facility] as a trauma transfer to Dr Duran. The patient currently denies any headache, dizziness or confusion. He still has retrograde amnesia of the event. 04/20: head feeling better, stable right rib pain controlled on Morphine 04/21: doing well, no new neuro complaints (Lakshmi Mcleod) Labs, Micro, & Vital Signs Results Date Time Temp Pulse Resp B/P Pulse Ox O2 Delivery O2 Flow Rate FiO2 04/21/17 11:45 79 04/21/17 09:34 99 04/21/17 08:00 97.7 64 18 120/65 95 04/21/17 04:00 98.1 70 18 104/56 95 04/21/17 00:00 97.9 74 18 109/64 96 04/20/17 21:15 97 04/20/17 20:00 98.1 72 18 107/59 93 04/20/17 20:00 63 04/20/17 16:00 96.6 71 17 104/59 96 04/20/17 12:00 97 04/20/17 12:00 98.3 68 17 124/77 97 04/21/17 06:59 Intake Total 1280 ml Output Total 500 ml Balance 780 ml Constitutional Vital Signs Date Time Temp Pulse Resp B/P Pulse Ox O2 Delivery O2 Flow Rate FiO2 8/6/17 11:45 79 04/21/17 09:34 99 04/21/17 08:00 97.7 64 18 120/65 95 04/21/17 04:00 98.1 70 18 104/56 95 04/21/17 00:00 97.9 74 18 109/64 96 04/20/17 21:15 97 04/20/17 20:00 98.1 72 18 107/59 93 04/20/17 20:00 63 04/20/17 16:00 96.6 71 17 104/59 96 04/20/17 12:00 97 04/20/17 12:00 98.3 68 17 124/77 97 04/21/17 06:59 Intake Total 1280 ml Output Total 500 ml Balance 780 ml (Lakshmi Mcleod) Review of Systems/Exam Exam Awake, alert, and oriented x 3 Speech is fluent. Follows commands well. CN: pupils equal, facial motor symmetric Motor: 5/5 to all major flexion & extension groups (Lakshmi Mcleod) Medications Current Medications Current Medications Medications (Trade) Dose Ordered Sig/Lili Route PRN Reason Start Time Stop Time Status Last Admin Dose Admin Amlodipine Besylate (Norvasc) 5 mg DAILY PO 04/19/17 09:00 04/21/17 08:43 Lisinopril (Prinivil) 20 mg DAILY PO 04/19/17 09:00 04/21/17 08:43 Cholecalciferol (Vitamin D3) 2,000 units DAILY PO 04/19/17 09:00 04/21/17 08:43 Citalopram Hydrobromide (CeleXA) 20 mg DAILY PO 04/19/17 09:00 04/21/17 08:42 Clonazepam (KlonoPIN) 1 mg BID PO 04/19/17 09:00 04/21/17 08:43 Pravastatin Sodium (Pravachol) 40 mg DAILY PO 04/19/17 09:00 04/21/17 08:43 Cyanocobalamin (Vitamin B12) 1,000 mcg DAILY PO NS 04/19/17 09:00 04/20/17 09:57 Sodium Chloride (NS Flush) 2 ml UNSCH PRN .XX FLUSH AFTER USING IV ACCESS 04/19/17 03:00 Sodium Chloride (NS Flush) 2 ml BID .XX 04/19/17 09:00 04/20/17 21:04 Acetaminophen (Tylenol) 650 mg Q6H PRN PO OR FEVER >101F 04/19/17 03:00 Ondansetron HCl (Zofran Inj) 4 mg Q6H PRN IV NAUSEA OR VOMITING 04/19/17 03:00 Senna/Docusate Sodium (Suri-Colace) 1 tab BID PO 04/19/17 09:00 04/21/17 08:42 Magnesium Hydroxide (Milk Of Magnesia Liq) 30 ml Q12H PRN PO MILD - MODERATE CONSTIPATION 04/19/17 03:00 Sennosides (Senokot) 17.2 mg Q12H PRN PO MODERATE - SEVERE CONSTIPATION 04/19/17 03:00 Bisacodyl (Dulcolax Supp) 10 mg DAILY PRN RECTAL SEVERE CONSITIPATION 04/19/17 03:00 Lactulose (Lactulose Liq) 30 ml DAILY PRN PO SEVERE CONSITIPATION 04/19/17 03:00 Bacitracin (Baciguent Oint) 1 applic BID TOP 04/19/17 09:00 04/21/17 08:45 Methocarbamol (Robaxin) 500 mg Q8HR PO 04/19/17 08:00 04/21/17 05:31 Lidocaine HCl (Lidoderm 5% Patch.12 Hr) 1 patch DAILY T-DERMAL 04/19/17 09:00 04/21/17 08:45 Oxycodone/ Acetaminophen (Percocet 5-325 Mg) 1 tab Q6H PRN PO PAIN SCALE 4 TO 7 04/20/17 11:30 04/20/17 17:35 Oxycodone/ Acetaminophen (Percocet 5-325 Mg) 2 tab Q6H PRN PO PAIN SCALE 7 TO 10 04/20/17 11:30 (Lakshmi Mcleod) Medical Decision Making MDM Remarks 76 y/o male s/p fall from ladder CT Head with punctate cortical contusion Right 6th & 7th rib fractures Small right-sided pneumothorax neuro exam stable (Lakshmi Mcleod) Plan Plan Remarks neuro stable, cont nonsurgical mgt supportive care cont neuro checks, nonchemical dvt prophylaxis due to ICH clear to dc home from NRS standpoint (Lakshmi Mcleod) Attending Statement The exam, history, and the medical decision-making described in the above note were completed with the assistance of the mid-level provider. I reviewed and agree with the findings presented. I attest that I had a [id number] encounter with the patient on the same day, and personally performed and documented my assessment and findings in the medical record. (Dakota Ervin MD) Lakshmi Mcleod Apr 21, 2017 11:47 Dakota Ervin MD Apr 23, 2017 19:22
[2017-04-21] MEDS: oxyCODONE/ACETAMINOPHEN 5 MG/325 MG TAB PO PRN (12:44)
[2017-04-21] MEDS: SODIUM CHLORIDE 0.9% FLUSH 10 ML FLUSH SCH ×2 (16:46→20:49)
[2017-04-22] VITALS: BP 132/67; PULSE 86; RESP 20; TEMP 100.7; O2SAT 93
[2017-04-22 04:00] VITALS: BP 139/66; PULSE 82; RESP 20; TEMP 98.6; O2SAT 95
[2017-04-22] MEDS: METHOCARBAMOL 500 MG TAB PO SCH ×2 (05:56→14:19)
[2017-04-22 07:49] VITALS: BP 134/66; PULSE 78; RESP 18; TEMP 98.8; O2SAT 95
[2017-04-22 08:30] VITALS: PULSE 95
[2017-04-22] MEDS: amLODIPine BESYLATE 5 MG TAB PO SCH (10:23)
[2017-04-22] MEDS: BACITRACIN TOP OINT 15 GM TUBE TOP SCH (10:23)
[2017-04-22] MEDS: clonazePAM 1 MG TAB PO SCH (10:23)
[2017-04-22] MEDS: SODIUM CHLORIDE 0.9% FLUSH 10 ML FLUSH SCH (10:23)
[2017-04-22] MEDS: CITALOPRAM HYDROBROMIDE 20 MG TAB PO SCH (10:23)
[2017-04-22] MEDS: CHOLECALCIFEROL (VIT D3) 1000 UNIT TAB PO SCH (10:23)
[2017-04-22] MEDS: LISINOPRIL 20 MG TAB PO SCH (10:24)
[2017-04-22] MEDS: CYANOCOBALAMIN 1,000 MCG TAB PO SCH (10:25)
[2017-04-22] MEDS: DOCUSATE SODIUM 50 MG/SENNA 8.6 MG TAB PO SCH (10:25)
[2017-04-22] MEDS: PRAVASTATIN SOD 40 MG TAB PO SCH (10:25)
[2017-04-22] MEDS: LIDOCAINE HCL 5% PATCH T-DERMAL SCH (10:29)
--- NOTE | 2017-04-22 10:55 | HHI.NSPN ---
History Chief Complaint: Slight headache to right frontal. Interval History 04/19: This is a 76-year-old male who was working approximately 18 to 20 feet off the ground on a ladder trimming trees when he fell the afternoon of . He is amnesic to the event. He states that he remembers being on the ground and getting up and walking back to his house. He does state he felt groggy afterward. He called his daughter and told her what happened and she called EMS who came to his house. He was transported to [facility] for evaluation. Imaging there demonstrated a small intracranial haemorrhage to the right frontal region, right-sided rib fractures and a small pneumothorax. He was therefore transferred to [facility] as a trauma transfer to Dr Duran. The patient currently denies any headache, dizziness or confusion. He still has retrograde amnesia of the event. 04/20: head feeling better, stable right rib pain controlled on Morphine 04/21: doing well, no new neuro complaints 04/22: The patient is doing well when seen this morning. He states that he has some pain to the right forehead which is probably more of a headache than localised pain. He does feel that his lower extremities are weaker than normal. He also endorses some pain, especially with coughing, to the right anterolateral rib cage/chest wall. System Review Comments Constitutional: Patient denies any fever or chills. HEENT: Patient has pain to the right forehead but feels it is more of a headache than localised pain. He denies any visual or hearing deficits. Respiratory: Patient denies any shortness of breath, productive cough or wheezing. Cardiovascular: Patient complains of right lower chest wall/rib pain. He denies any palpitations, irregular heartbeat or other chest pain. Gastrointestinal: Patient denies any abdominal pain, nausea, vomiting or incontinence of stool. Genitourinary: Patient denies any incontinence of urine. Musculoskeletal: Patient has pain to the right thigh from the fall. He denies any neck or back pain. Integumentary: Patient has abrasions and bruising to the both arms. He denies any rashes, ulcerations or other lesions. Neurologic: Patient has pain to the right forehead which he feels is more of a headache than localised pain. He denies any dizziness, numbness, tingling or confusion. Exam Results Vital Signs Date Time Temp Pulse Resp B/P Pulse Ox O2 Delivery O2 Flow Rate FiO2 04/22/17 07:49 98.8 78 18 134/66 95 04/21/17 15:43 21 Intake and Output 04/21/17 04/21/17 04/21/17 07:59 15:59 23:59 Intake Total 320 ml 635 ml 320 ml Balance 320 ml 635 ml 320 ml Physical Examination GENERAL: The patient is awake & alert and readily interacts, his affect is normal. He is in no apparent distress. HEENT: Normocephalic, atraumatic. PERRLA, EOMI. NECK: No JVD, trachea midline. RESPIRATORY: CTAB w/o W/R/R, equal excursion, nonlaboured, on RA. CARDIOVASCULAR: Mid right anterolateral chest wall TTP. S1S2 w/RRR w/o M/G/R, radial & pedal pulses 2+ bilaterally, cap refill < 2 sec, no pedal edema. GASTROINTESTINAL: Abdomen soft, nontender, positive bowel sounds. INTEGUMENTARY: Warm & dry. Multiple abrasions and ecchymosis to the upper extremities healing w/o complication. MUSCULOSKELETAL: RODRIGUES w/o difficulty, no evident deformity or clubbing, Right thigh mildly TTP. NEUROLOGICAL: AAOx3. Speech clear & appropriate. Follows commands w/o difficulty. PERRLA, EOMI. Sensation to light touch intact to extremities. Motor strength 5/5 to all major flexion & extension muscle groups. Medical Decision Making Impression and Plan Impression: 1. Fall from ladder ~18 to 20 ft 2. Small right orbitofrontal region punctate cortical contusion 3. Right 6th & 7th rib fractures 4. Small right-sided pneumothorax 5. Multiple extremity contusions & abrasions Patient continues to do well and remains neurologically intact. Plan: Primary management per Trauma. Neuro checks. Stat CT brain for any worsening of neuro status. Mobilise patient. The patient is able to be discharged from NSGY's perspective once cleared by Trauma. Advised to avoid aspirin, NSAIDs, fish oil, vitamin E, antiplatelet agents for the next 2 weeks. He can follow up outpatient with neurosurgery. Brad Larson Apr 22, 2017 10:55
[2017-04-22] MEDS ORDERED: OXYC1TAB63 PO (11:41)
[2017-04-22 12:00] VITALS: BP 136/68; PULSE 68; RESP 18; TEMP 96.5; O2SAT 96
--- NOTE | 2017-04-22 12:40 | HHI.FF ---
Face to Face Verification Diagnosis: (1) Fall from ladder (2) Intracranial bleed (3) Multiple fractures of ribs of right side (4) Pneumothorax, right Physical Therapy Order: Evaluate and Treat, Improve ambulation, Strength and gait training Occupational Therapy Order: Evaluate and Treat, Improve ADL Home Health Nursing Order: Nursing assessment with vital signs Computer Graphic Designer Order: To Evaluate: Living conditions/environment, Support services I have seen patient Ellen Diallo on 04/22/17. My clinical findings support the need for the requested home health care services because: Deconditioned w/ increased weakness Limited ability to care for self High risk of falls I certify that my clinical findings support that this patient is homebound because: Unsteady gait/balance Trent Frank Apr 22, 2017 12:40
--- NOTE | 2017-04-22 13:36 | HHI.DS ---
Discharge Summary Admission Date Apr 19, 2017 at 02:44 Discharge Date: Apr 22, 2017 Admitting Diagnosis intracranial hemorrhage, small right pneumothorax, right sided rib f Brief History S/P Trauma: Fall CBC/BMP: 04/20/17 0320 04/20/17 0320 Significant Findings Laboratory Tests Test 04/20/17 03:20 Red Blood Count 3.91 MIL/MM3 (4.50-5.90) Hemoglobin 11.7 GM/DL (13.0-17.0) Hematocrit 34.9 % (39.0-51.0) Monocytes (%) (Auto) 13.3 % (0.0-8.0) Lymphocytes # (Auto) 0.9 TH/MM3 (1.0-4.8) Chloride Level 109 MEQ/L (98-107) Anion Gap 3 MEQ/L (5-15) Blood Urea Nitrogen 22 MG/DL (7-18) Estimat Glomerular Filtration 81 ML/MIN (>89) Rate Calcium Level 7.7 MG/DL (8.5-10.1) Total Protein 5.4 GM/DL (6.4-8.2) Albumin 2.7 GM/DL (3.4-5.0) Imaging Last Impressions Chest X-Ray 04/20/17 0600 Signed Impressions: Service Date/Time: Thursday, April 20, 2017 04:43 - CONCLUSION: 1. Bibasilar atelectasis. This is new when compared with the prior exam. Gentry Conn MD Head CT 04/19/17 0000 Signed Impressions: Service Date/Time: Wednesday, April 19, 2017 10:07 - CONCLUSION: Small punctate cortical contusion right orbitofrontal region otherwise negative. Efrain Clancy MD FACR PE at Discharge GENERAL: 76-year-old well-nourished, well developed male lying in bed. SKIN: Warm and dry. HEAD: Normocephalic. ENT: No nasal bleeding or discharge. Mucous membranes pink and moist. NECK: Trachea midline. No JVD. CARDIOVASCULAR: Regular rate and rhythm. RESPIRATORY: No accessory muscle use. Lungs clear and diminished to auscultation. Breath sounds equal bilaterally. GASTROINTESTINAL: Abdomen soft, non-tender, nondistended. + BS. MUSCULOSKELETAL: Extremities without cyanosis, or edema. No obvious deformities. NEUROLOGICAL: Awake and alert. Normal speech. Hospital Course STANDING [place]OCK: Trimming trees on a ladder and fell off approx. 20ft. + LOC. Woke up and ambulated around but felt funny. Transferred from [facility] for Trauma services. INJURIES: RIGHT frontal IPH RIGHT rib fxs (6,7) RIGHT PTX PMHx: HTN, HLD Diet: Regular, tolerating Pulm: IS, EZPAP Pain: Robaxin, Lidoderm patch, Percocet Activity: OOB. PT and OT ordered GI: Pepcid Bowel: Suri-colace. + BM DVT: SCDs RIGHT frontal IPH Neurosurgery consulted Serial neuro checks Repeat CT brain improved OOBPT F/U with NS as outpatient Hold ASA at home RIGHT rib fxs, RIGHT PTX Supportive care PTX resolved without intervention Pain control Pulmonary toileting OOBPT F/U with PCP in 1 week Plan of care discussed patient at bedside. Case management consulted to assist with discharge planning. Patient is clear from Trauma surgery standpoint to safely DC home with C. Pt Condition on Discharge: Stable Discharge Disposition: Disch w/ Home Health Serv Discharge Instructions DIET: Follow Instructions for: As Tolerated, No Restrictions Activities you can perform: Regular-No Restrictions Activities to Avoid: Strenuous Activity Other Activity Instructions: No driving while taking narcotics Remarks seen and examined with WAIST CUTTER doing well pain controlled ambulating dc home with home health services Trent Frank Apr 22, 2017 13:36 Kathie Miller MD Apr 23, 2017 16:01
[2017-04-22] MEDS ORDERED: ULTR50TA5 PO (14:51)
[2017-04-22] MEDS ORDERED: traMADol HCL 50 MG TAB PO PRN (15:00)
== END 2017-04-22 16:05 | disposition home health service (06) | DRG 964 ==
LOC: NEPE 01:54 → NEDA 02:44 → N03A 04:06 → N07B 16:01
PROVIDERS: ADMIT Surgery; ATTEND Surgery
DX: S06.349A Traumatic hemorrhage of right cerebrum with loss of consciousness of unspecified duration, initial encounter (principal); S22.41XA Multiple fractures of ribs, right side, initial encounter for closed fracture; S27.0XXA Traumatic pneumothorax, initial encounter; R41.2 Retrograde amnesia; W11.XXXA Fall on and from ladder, initial encounter; Y93.H2 Activity, gardening and landscaping; Y92.9 Unspecified place or not applicable; Z79.82 Long term (current) use of aspirin; E78.5 Hyperlipidemia, unspecified; I10 Essential (primary) hypertension; F32.9 Major depressive disorder, single episode, unspecified; F41.9 Anxiety disorder, unspecified; G14 Postpolio syndrome; Z85.46 Personal history of malignant neoplasm of prostate; R01.1 Cardiac murmur, unspecified
CPT/HCPCS: 70450; 71010; 80053; 83735; 84100; 85025; 87641; 94150; 94640; 99283; J0131; J1953; J2270; J7030